=== PATIENT | male | born 1975 | race Caucasian/White ===

== ENCOUNTER 2018-06-02 00:10 | Emergency (ER) | payer MEDICARE, MEDICAID ==
--- NOTE | 2018-06-02 00:45 | ER Document Report ---
ED General - General Stated Complaint: POSSIBLE SEIZURE Time Seen by Provider: 06/02/18 00:19 Notes: Patient is a 43-year-old male with a past medical history of developmental delay and epilepsy who presents after having a witnessed generalized seizure at home. The patient arrives awake, alert, states he feels fine. He is very poor historian secondary to his developmental delay. He states he does not recall the last time he had a seizure. He states that he has been taking his carbamazepine as directed. He denies any injury during today's seizure episode. He denies any headache, focal weakness or numbness. He is uncertain what triggered the seizure tonight. The seizure did resolve without intervention. TRAVEL OUTSIDE OF THE [place] IN LAST 30 DAYS: No - Related Data Allergies/Adverse Reactions: No Known Allergies Allergy (Verified 10/15/15 20:44) Past Medical History - General Information source: Patient - Social History Smoking Status: Never Smoker Frequency of alcohol use: None Drug Abuse: None Lives with: Family Family History: Reviewed & Not Pertinent Neurological Medical History: Reports: Hx Seizures - Immunizations Immunizations up to date: Yes Hx Diphtheria, Pertussis, Tetanus Vaccination: Yes Review of Systems - Review of Systems Notes: Constitutional: Negative for fever. HENT: Negative for sore throat. Eyes: Negative for visual changes. Cardiovascular: Negative for chest pain. Respiratory: Negative for shortness of breath. Gastrointestinal: Negative for abdominal pain, vomiting or diarrhea. Genitourinary: Negative for dysuria. Musculoskeletal: Negative for back pain. Skin: Negative for rash. Neurological: Negative for headaches, weakness or numbness. 10 point ROS negative except as marked above and in HPI. Physical Exam - Vital signs Interpretation: Normal Notes: PHYSICAL EXAMINATION: GENERAL: Well-appearing, well-nourished and in no acute distress. HEAD: Atraumatic, normocephalic. EYES: Pupils equal round and reactive to light, extraocular movements intact, sclera anicteric, conjunctiva are normal. ENT: nares patent, oropharynx clear without exudates. Moist mucous membranes. NECK: Normal range of motion, supple without lymphadenopathy LUNGS: Breath sounds clear to auscultation bilaterally and equal. No wheezes rales or rhonchi. HEART: Regular rate and rhythm without murmurs ABDOMEN: Soft, nontender, normoactive bowel sounds. No guarding, no rebound. No masses appreciated. EXTREMITIES: Normal range of motion, no pitting or edema. No cyanosis. NEUROLOGICAL: Face symmetric. Tongue protrudes midline. Extraocular motions intact. Pupils are 2 mm and equally reactive. Normal speech, 5 out of 5 strength in both the distal and proximal upper and lower extremities bilaterally. Sensation normal throughout. PSYCH: Pleasant on contact, alert and oriented SKIN: Warm, Dry, normal turgor, no rashes or lesions noted. Course - Re-evaluation Re-evalutation: 06/02/18 00:44 Presentation of well-appearing patient after having a seizure. Patient has a known history of seizures. No obvious trigger for today's episode. The patient has returned to baseline without intervention. No focal neurologic deficits. No infectious symptoms, vital sign abnormalities, or evidence of trauma. No indication for laboratories or imaging based on reassuring evaluation and known history of seizures. The patient will be discharged home with recommendations for close follow-up with primary care as well as their neurologist. Return precautions have been reviewed and patient has verbalized understanding. Discharge - Discharge Clinical Impression: Seizure Epilepsy Qualifiers: Epilepsy type: unspecified Intractability: not intractable Status epilepticus: without status epilepticus Qualified Code(s): G40.909 - Epilepsy, unspecified, not intractable, without status epilepticus Condition: Good Disposition: HOME, SELF-CARE Additional Instructions: Today you had a seizure. It is very important that you do not engage in any activities that could result in severe injury should you have a seizure. Specifically, do not drive a vehicle, go into a body of water, take a bath, climb ladders, or operate any heavy machinery until you have been cleared by your neurologist. Please return to the ED immediately if you have multiple seizures close together, develop a severe headache, weakness, numbness, difficulty speaking, have a seizure in which you do not return to normal within 1 hour of the seizure, or have any other symptoms that are concerning to you.
[2018-06-02 07:44] VITALS: BP 130/94
== END 2018-06-02 07:35 | disposition home or self-care (01) ==
LOC: ER 00:10
DX: G40.909 Epilepsy, unspecified, not intractable, without status epilepticus (principal); R62.50 Unspecified lack of expected normal physiological development in childhood; Z79.899 Other long term (current) drug therapy
CPT/HCPCS: 99284

== ENCOUNTER 2018-08-23 14:55 | Emergency (ER) | payer MEDICARE, MEDICAID ==
--- NOTE | 2018-08-23 15:17 | ER Document Report ---
ED General - General Chief Complaint: Probable Seizure Stated Complaint: POSSIBLE SEIZURE Time Seen by Provider: 08/23/18 15:17 Mode of Arrival: Medic Information source: Patient, Relative, Law Enforcement, [facility] Records Notes: 43-year-old male with seizures, developmental delay presents via EMS after being found on the side of the road having a seizure. [employer] reports that they saw the patient get off his bike sit down and began seizing. We did contact the sister who the patient lives with and she states that the patient has been off of his Tegretol for 4 days, she states that the Tegretol has been making his seizures worse and that they have a follow-up appointment with "the doctor on Sunday".. Upon my exam patient is still postictal but alert and oriented x2. He denies headache, nausea, vomiting, chest pain, shortness of breath, abdominal pain, back pain. TRAVEL OUTSIDE OF THE [place] IN LAST 30 DAYS: No - HPI Onset: Just prior to arrival Onset/Duration: Sudden Quality of pain: No pain Associated symptoms: None Exacerbated by: Denies Relieved by: Denies Similar symptoms previously: Yes Recently seen / treated by doctor: Yes - Related Data Allergies/Adverse Reactions: No Known Allergies Allergy (Verified 10/15/15 20:44) Past Medical History - General Information source: Patient, Relative, Law Enforcement, Emergency Med Personnel , [facility] Records Cannot obtain history due to: Altered mental status - Social History Smoking Status: Never Smoker Frequency of alcohol use: None Drug Abuse: None Lives with: Family Family History: Reviewed & Not Pertinent Patient has suicidal ideation: No Patient has homicidal ideation: No Neurological Medical History: Reports: Hx Seizures Renal/ Medical History: Denies: Hx Peritoneal Dialysis - Immunizations Immunizations up to date: Yes Hx Diphtheria, Pertussis, Tetanus Vaccination: Yes Review of Systems - Review of Systems -: Yes ROS unobtainable due to patient's medical condition Physical Exam - Vital signs Vitals: Resp 11 L 08/23/18 15:01 Interpretation: Hypertensive, Tachycardic, Tachypneic - Notes Notes: PHYSICAL EXAMINATION: GENERAL: Somnolent but easily aroused HEAD: Superficial abrasion to the scalp on the left EYES: Pupils equal round and reactive to light, extraocular movements intact, sclera anicteric, conjunctiva are normal. ENT: Nares patent, oropharynx clear without exudates. Moist mucous membranes. NECK: Normal range of motion, supple without lymphadenopathy LUNGS: Breath sounds clear to auscultation bilaterally and equal. No wheezes rales or rhonchi. HEART: Regular rate and rhythm without murmurs ABDOMEN: Soft, nontender, nondistended abdomen. No guarding, no rebound. No masses appreciated. Musculoskeletal: Normal range of motion, no pitting or edema. No cyanosis. NEUROLOGICAL: Cranial nerves grossly intact. PSYCH: Normal mood, normal affect. SKIN: Warm, Dry, normal turgor, no rashes or lesions noted. Course - Re-evaluation Re-evalutation: Laboratory 08/23/18 08/23/18 15:55 15:55 WBC 7.5 RBC 5.21 Hgb 16.5 Hct 46.2 MCV 89 MCH 31.8 MCHC 35.8 RDW 13.1 Plt Count 173 Seg Neutrophils % 78.6 H Lymphocytes % 14.6 Monocytes % 5.5 Eosinophils % 0.8 Basophils % 0.5 Absolute Neutrophils 5.9 Absolute Lymphocytes 1.1 Absolute Monocytes 0.4 Absolute Eosinophils 0.1 Absolute Basophils 0.0 Sodium 140.9 Potassium 4.2 Chloride 106 Carbon Dioxide 23 Anion Gap 12 BUN 15 Creatinine 0.79 Est GFR ( Amer) > 60 Est GFR (Non-Af Amer) > 60 Glucose 152 H Calcium 9.7 08/23/18 20:13 43-year-old male with known seizure disorder was brought in the EMS after police witnessed the patient riding his bike get off his bike sit himself on the ground and began having seizure-like activity. Upon arrival patient is somnolent but arousable. He is initially alert and oriented x2. His sister was contacted who the patient lives with and reports that the patient has not been taking his Tegretol which is the only seizure medication he is currently prescribed. She states that he has been without his Tegretol for approximately 3 days. She states she believes that this medication is making him worse. Patient has no evidence of trauma on exam. He was given Keppra 500 mg IV and Ativan 1 mg IV during his ED course. CBC is without leukocytosis or anemia. BMP does show mild elevation in his glucose otherwise it is unremarkable. Sister reports that they do have an upcoming appointment with the prescribing physician of the Tegretol on August 27. She is comfortable with the patient being discharged back to their home where she is waiting for him. On third reevaluation patient is alert and oriented x3. He sits up and is interactive. He is tolerating p.o. with the patient's developmental delay I do not believe that he understands the instructions that I discussed with him. We did call the sister back and reiterate that the patient was doing well and will be discharged back home. Patient was evaluated and treated as appropriate for the patient's presenting symptoms and complaint, with consideration of any critical or life threatening conditions that may be associated with their obtained history and exam as noted above. At this time we will discharge the patient with return precautions and follow-up recommendations. After careful consideration I feel that that patient can be safely discharged from the emergency department, they were advised to followup with a primary care physician in 2-3 days. Dictation on this chart was performed using voice recognition software and may result in unintended grammatical, spelling, syntax or errors. - Vital Signs Vital signs: Temp Pulse Resp BP Pulse Ox 97.7 F 113 H 13 115/86 H 95 08/23/18 15:02 08/23/18 15:02 08/23/18 20:01 08/23/18 20:00 08/23/18 20:01 - Laboratory Result Diagrams: 08/23/18 15:55 08/23/18 15:55 Laboratory results interpreted by me: 08/23/18 08/23/18 15:55 15:55 Seg Neutrophils % 78.6 H Glucose 152 H Discharge - Discharge Clinical Impression: Seizure disorder, Nonadherence to medication, Tachycardia, Developmental delay , moderate Condition: Good Disposition: HOME, SELF-CARE Instructions: Seizure, Known Epileptic ([facility]) Additional Instructions: It is important to continue your seizure medication until you are seen by the prescribing doctor. Not adhering to your medication regimen will lead to an increase in your seizure activity. Follow up with your [id number] hours for further care or return to the ED IMMEDIATELY if symptoms worsen or you have any concerns. If you cannot afford to follow up with your primary care physician a list of low cost clinics have been provided at the end of your discharge papers as well. Most prescribed medications have multiple side effects. The safest thing to do is when filling your prescription speak to your pharmacist regarding possible interactions with your normal home medications and over the counter medications such as Ibuprofen, Tylenol, Benadryl. If you experience any symptoms that cause you discomfort or concern you should discontinue the medication immediately and return to the emergency room or call your primary care physician.
[2018-08-23] MEDS ORDERED: NORMAL SALINE 1000 ML 1,000 ML IV ONE (15:55)
[2018-08-23] MEDS ORDERED: LEVETIRACETAM 500 MG/NACL-ISO 500 MG/100 ML RTUPB IV ONE (15:56)
[2018-08-23] MEDS ORDERED: LORAZEPAM INJ 2 MG/1 ML VIAL IV ONE (15:56)
[2018-08-23 16:06] LABS: ABSOLUTE EOSINOPHILS # (AUTO) 0.1 10^3/uL (0.0-0.6); ABSOLUTE LYMPHOCYTES (AUTO) 1.1 10^3/uL (0.5-4.7); ABSOLUTE MONOCYTES (AUTO) 0.4 10^3/uL (0.1-1.4); ABSOLUTE NEUT (AUTO) 5.9 10^3/uL (1.7-8.2); BASOPHILS % (AUTO) 0.5 % (0-2); EOSINOPHILS % (AUTO) 0.8 % (0-6); HEMATOCRIT 46.2 % (37.9-51.0); HEMOGLOBIN 16.5 g/dL (13.5-17.0); LYMPHOCYTES % (AUTO) 14.6 % (13-45); MEAN CORPUSCULAR HEMOGLOBIN 31.8 pg (27.0-33.4); MEAN CORPUSCULAR HGB CONC 35.8 g/dL (32.0-36.0); MEAN CORPUSCULAR VOLUME 89 fl (80-97); MONOCYTES % (AUTO) 5.5 % (3-13); PLATELET COUNT 173 10^3/uL (150-450); RED BLOOD COUNT 5.21 10^6/uL (4.35-5.55); RED CELL DISTRIBUTION WIDTH 13.1 % (11.5-14.0); SEGMENTED NEUTROPHILS % (AUTO) 78.6 % (42-78); TOTAL CELLS COUNTED % (AUTO) 100 %; WHITE BLOOD COUNT 7.5 10^3/uL (4.0-10.5)
[2018-08-23 16:25] LABS: ANION GAP 12 (5-19); BLOOD UREA NITROGEN 15 mg/dL (7-20); CALCIUM 9.7 mg/dL (8.4-10.2); CARBON DIOXIDE 23 mmol/L (22-30); CHLORIDE 106 mmol/L (98-107); GLUCOSE 152 mg/dL (75-110); POTASSIUM 4.2 mmol/L (3.6-5.0); SODIUM 140.9 mmol/L (137-145)
[2018-08-23 21:05] VITALS: BP 107/72
== END 2018-08-23 21:32 | disposition home or self-care (01) ==
LOC: ER 14:55
DX: G40.909 Epilepsy, unspecified, not intractable, without status epilepticus (principal); T42.1X6A Underdosing of iminostilbenes, initial encounter; Z91.14 Patient's other noncompliance with medication regimen; S00.01XA Abrasion of scalp, initial encounter; X58.XXXA Exposure to other specified factors, initial encounter; R62.50 Unspecified lack of expected normal physiological development in childhood
CPT/HCPCS: 99284; 96361; 96375; 96365; 36415; 85025; 80048; J2060; J7030; J1953

== ENCOUNTER 2018-08-29 15:58 | Emergency (ER) | payer MEDICARE, MEDICAID ==
[2018-08-29 16:35] LABS: ABSOLUTE BASOPHILS # (AUTO) 0.1 10^3/uL (0.0-0.2); ABSOLUTE EOSINOPHILS # (AUTO) 0.1 10^3/uL (0.0-0.6); ABSOLUTE LYMPHOCYTES (AUTO) 3.5 10^3/uL (0.5-4.7); ABSOLUTE MONOCYTES (AUTO) 0.7 10^3/uL (0.1-1.4); ABSOLUTE NEUT (AUTO) 4.4 10^3/uL (1.7-8.2); BASOPHILS % (AUTO) 0.6 % (0-2); EOSINOPHILS % (AUTO) 1.5 % (0-6); HEMATOCRIT 48.5 % (37.9-51.0); HEMOGLOBIN 16.9 g/dL (13.5-17.0); LYMPHOCYTES % (AUTO) 39.4 % (13-45); MEAN CORPUSCULAR HEMOGLOBIN 31.6 pg (27.0-33.4); MEAN CORPUSCULAR HGB CONC 34.8 g/dL (32.0-36.0); MEAN CORPUSCULAR VOLUME 91 fl (80-97); MONOCYTES % (AUTO) 8.3 % (3-13); PLATELET COUNT 215 10^3/uL (150-450); RED BLOOD COUNT 5.35 10^6/uL (4.35-5.55); RED CELL DISTRIBUTION WIDTH 13.1 % (11.5-14.0); SEGMENTED NEUTROPHILS % (AUTO) 50.2 % (42-78); TOTAL CELLS COUNTED % (AUTO) 100 %; WHITE BLOOD COUNT 8.9 10^3/uL (4.0-10.5)
--- NOTE | 2018-08-29 16:38 | ER Document Report ---
ED General - General Chief Complaint: Seizure Stated Complaint: POSSIBLE SEIZURE Time Seen by Provider: 08/29/18 16:27 Mode of Arrival: Medic Information source: Patient Notes: Patient presents emergency department post seizure. Patient was here approximately 2 weeks ago with same. Mess reported patient was walking in a store when he had a seizure. When EMS arrived to the scene he had another seizure. He was given 2.5 mg of Versed nasally. Patient is easily arousable when I walk in the room to verbal stimuli. Noted dried blood on his lips no active bleeding. Patient has history of seizure disorder and according to EMS per the family patient is having his medications adjusted. TRAVEL OUTSIDE OF THE [place] IN LAST 30 DAYS: No - HPI Onset: Just prior to arrival Onset/Duration: Sudden Associated symptoms: None Exacerbated by: Denies Similar symptoms previously: Yes Recently seen / treated by doctor: Yes - Related Data Allergies/Adverse Reactions: No Known Allergies Allergy (Verified 10/15/15 20:44) Past Medical History - General Information source: Patient - Social History Smoking Status: Unknown if Ever Smoked Cigarette use (# per day): No Frequency of alcohol use: None Drug Abuse: None Lives with: Family Family History: Reviewed & Not Pertinent Patient has suicidal ideation: No Patient has homicidal ideation: No Neurological Medical History: Reports: Hx Seizures Renal/ Medical History: Denies: Hx Peritoneal Dialysis Surgical Hx: Negative - Immunizations Immunizations up to date: Yes Hx Diphtheria, Pertussis, Tetanus Vaccination: Yes Review of Systems - Review of Systems Notes: Review HPI for review of systems., All other systems negative Physical Exam - Vital signs Vitals: Temp Pulse Resp BP Pulse Ox 98.9 F 87 15 124/95 H 93 08/29/18 16:02 08/29/18 16:02 08/29/18 16:02 08/29/18 16:02 08/29/18 16:02 - Notes Notes: PHYSICAL EXAMINATION: GENERAL: no acute distress drowsy, arouses to verbal stimuli HEAD: Atraumatic, normocephalic. EYES: Pupils equal round and reactive to light, extraocular movements intact, sclera anicteric, conjunctiva are normal. ENT: nares patent, oropharynx clear without exudates. Moist mucous membranes. dried blood to bottom lip, no active bleeding, missing top two front teeth 8-9 NECK: Normal range of motion, supple without lymphadenopathy LUNGS: CTAB and equal. No wheezes rales or rhonchi. HEART: Regular rate and rhythm without murmurs ABDOMEN: Soft, no tenderness. No guarding, no rebound EXTREMITIES: Normal range of motion, no pitting edema. No cyanosis. NEUROLOGICAL: calm PSYCH: drowsy, answers to verbal stimuli SKIN: Warm, Dry, normal turgor, no rashes or lesions noted Course - Re-evaluation Re-evalutation: 08/29/18 18:25 nurse rachel contacted his sister, she reports patient has not been taking his meds. I will dose him again with keppra to be discharged home for follow up to with his neurologist. Labs unremarkable patient is arousable to verbal stimuli easily. Patient is aware of where he is, answers appropriately he reports he has not been taking his medication. 08/29/18 19:15 patient is alert and oriented answers questions appropriately will be discharged home. - Vital Signs Vital signs: Temp Pulse Resp BP Pulse Ox 98.9 F 87 15 134/117 H 95 08/29/18 16:02 08/29/18 16:02 08/29/18 17:31 08/29/18 17:31 08/29/18 17:31 - Laboratory Result Diagrams: 08/29/18 16:09 08/29/18 16:09 Laboratory results interpreted by me: 08/29/18 16:09 Carbon Dioxide 16 L Anion Gap 23 H Discharge - Discharge Clinical Impression: Seizure, Nonadherence to medication, Seizure disorder Condition: Stable Disposition: HOME, SELF-CARE Additional Instructions: Seizure, Known Epileptic You have had a seizure. Seizures may "break through" in an epileptic due to stress of infection or injury, a change in blood chemistry, or drug and alcohol use. Another common cause is failure to take medication as prescribed. Your doctor has evaluated your situation for the likely cause of this seizure. It is important that you follow his advice concerning any medication changes and follow-up care. Further testing of anti-seizure medication levels in your blood may be necessary. 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 This seizure must be reported to the forklift driver 's license bureau. Call the doctor or return if seizures recur, or if new or unusual symptoms arise -- such as severe headache, confusion, excessive sleepiness, local weakness or numbness, neck stiffness, or fever. It is important to continue your seizure medication until you are seen by the prescribing doctor. Not adhering to your medication regimen will lead to an increase in your seizure activity. Follow up with your [id number] hours for further care or return to the ED IMMEDIATELY if symptoms worsen or you have any concerns. If you cannot afford to follow up with your primary care physician a list of low cost clinics have been provided at the end of your discharge papers as well. Most prescribed medications have multiple side effects. The safest thing to do is when filling your prescription speak to your pharmacist regarding possible interactions with your normal home medications and over the counter medications such as Ibuprofen, Tylenol, Benadryl. If you experience any symptoms that cause you discomfort or concern you should discontinue the medication immediately and return to the emergency room or call your primary care physician.
[2018-08-29 16:41] LABS: ALANINE AMINOTRANSFERASE 21 U/L (21-72); ALKALINE PHOSPHATASE 59 U/L (38-126); ASPARTATE AMINO TRANSFERASE 17 U/L (17-59); BILIRUBIN,DIRECT 0.2 mg/dL (0.0-0.4); BILIRUBIN,TOTAL 0.9 mg/dL (0.2-1.3); BLOOD UREA NITROGEN 11 mg/dL (7-20); GLUCOSE 107 mg/dL (75-110); POTASSIUM 3.9 mmol/L (3.6-5.0); TOTAL PROTEIN 8.1 g/dL (6.3-8.2)
[2018-08-29 16:47] LABS: ANION GAP 23 (5-19); CARBON DIOXIDE 16 mmol/L (22-30); CHLORIDE 105 mmol/L (98-107); SODIUM 143.7 mmol/L (137-145)
[2018-08-29] MEDS ORDERED: LEVETIRACETAM INJ/PF 500 MG/5 ML SDV IV ONE (18:24)
[2018-08-29 20:05] VITALS: BP 150/101
--- NOTE | 2018-08-29 22:29 | EKG REPORT ---
SEVERITY:- ABNORMAL ECG - SINUS TACHYCARDIA LVH WITH SECONDARY REPOLARIZATION ABNORMALITY INFERIOR INFARCT, ? AGE : CANNOT BE EXCLUDED : Confirmed by: Yamilka Kaba MD 29-Aug-2018 22:29:03
== END 2018-08-29 20:16 | disposition home or self-care (01) ==
LOC: ER 15:58
DX: G40.909 Epilepsy, unspecified, not intractable, without status epilepticus (principal); Z91.14 Patient's other noncompliance with medication regimen
CPT/HCPCS: 93005; 99284; 96374; 36415; 85025; 80053; 93010; J1953